=== PATIENT | female | born 1980 | race African-American/Black ===

== ENCOUNTER 2018-06-05 12:31 | Inpatient (IN) | payer MEDICAID ==
[~2018-06-05] VITALS: Ht 167.6 cm; Wt 96.0 kg
[2018-06-05] VITALS (9 sets, daily range): BP systolic 136–154; BP diastolic 80–88
[2018-06-05 13:52] LABS: Mean Corpuscular Volume 45.6 fL (80.0-100.0)
[2018-06-05 13:53] LABS: Mean Corpuscular Hemoglobin 11.6 pg (28.0-32.0); Mean Corpuscular Hgb Conc. 25.4 g/dL (32.0-36.0); Platelet Count (auto) 238 10^3/uL (140-450); Red Blood Cells 5.47 10^6/uL (4.0-5.20); White Blood Cell 7.1 10^3/uL (4.4-10.8)
[2018-06-05 13:54] LABS: Red Cell Distribution Width 22.7 % (11.8-14.3)
[2018-06-05 13:55] LABS: INR 0.98 (0.9-1.15); Partial Thromboplastin Time 22.9 sec (23.78-33.04); Prothrombin Time 10.5 sec (9.27-12.13)
[2018-06-05 13:58] LABS: Hemoglobin 6.3 g/dL (12.2-16.2)
[2018-06-05] MEDS ORDERED: ENOXAPARIN SOD 100 MG/1 ML SYRINGE SC ONE ×2 (14:00→14:45)
[2018-06-05 14:01] LABS: Albumin 3.4 g/dL (3.4-5.0); BUN/Creatinine Ratio 19.8; Calcium 8.1 mg/dL (8.5-10.1); Potassium 4.1 mmol/L (3.5-5.1)
[2018-06-05 14:11] LABS: Bilirubin, Total 0.5 mg/dL (0.2-1.0); Total Protein 7.3 g/dL (6.4-8.2)
[2018-06-05] MEDS ORDERED: ONDANSETRON HCL 4 MG/2 ML VIAL IV ONE (14:15)
[2018-06-05] MEDS ORDERED: MORPHINE SULFATE 4 MG/ML SYR/VIAL IV ONE (14:15)
[2018-06-05] MEDS ORDERED: NITROGLYCERIN 0.4 MG SL TAB SL PRN (14:45)
[2018-06-05] MEDS ORDERED: HYDROcodone-ACET 5/325MG TAB PO PRN (14:45)
[2018-06-05] MEDS ORDERED: MORPHINE SULFATE 4 MG/ML SYR/VIAL IV PRN (14:45)
[2018-06-05 15:47] LABS: % Iron Saturation 2.4 % (15-50)
[2018-06-05] MEDS: MORPHINE SULFATE 4 MG/ML SYR/VIAL IV PRN (18:58)
[2018-06-05] MEDS: ENOXAPARIN SOD 100 MG/1 ML SYRINGE SC SCH (21:43)
[2018-06-05] MEDS: FAMOTIDINE 20 MG TAB PO SCH (21:43)
[2018-06-05 23:41] LABS: Urine Bacteria NONE SEEN /hpf (None Seen); Urine Blood Negative /uL (Negative); Urine Mucus FEW (None Seen); Urine Specific Gravity 1.018 (1.001-1.035); Urine WBC <1 /hpf (0 - 5)
[2018-06-06] VITALS (13 sets, daily range): BP systolic 106–166; BP diastolic 60–93
[2018-06-06 06:05] LABS: Hemoglobin 7.2 g/dL (12.2-16.2)
[2018-06-06 06:15] LABS: Hematocrit 26.4 % (36.0-46.0); Mean Corpuscular Hemoglobin 13.9 pg (28.0-32.0); Mean Corpuscular Hgb Conc. 27.4 g/dL (32.0-36.0); Mean Corpuscular Volume 50.6 fL (80.0-100.0); Red Blood Cells 5.22 10^6/uL (4.0-5.20); White Blood Cell 6.7 10^3/uL (4.4-10.8)
[2018-06-06 06:22] LABS: Platelet Count (auto) 207 10^3/uL (140-450); Red Cell Distribution Width 23.2 % (11.8-14.3)
[2018-06-06 06:24] LABS: Band Neutrophils % (manual) 0; Basophils % (manual) 0 (0.0-2.0); Blast Cells 0; Metamyelocytes % 0; Myelocytes % 0; Promyelocytes % 0; Reactive Lymphocytes 0
[2018-06-06 06:27] LABS: Potassium 4.1 mmol/L (3.5-5.1)
[2018-06-06 06:32] LABS: BUN/Creatinine Ratio 19.3; Calcium 7.8 mg/dL (8.5-10.1)
[2018-06-06 07:53] LABS: Eosinophils % (manual) 1 (0-7); Lymphocytes % (manual) 52 (10.0-50.0); Monocytes % (manual) 10 (0-12)
[2018-06-06] MEDS: ENOXAPARIN SOD 100 MG/1 ML SYRINGE SC SCH ×2 (10:01→21:28)
[2018-06-06] MEDS: FAMOTIDINE 20 MG TAB PO SCH ×2 (10:01→21:27)
[2018-06-06] MEDS ORDERED: SODIUM FERR GLUC 62.5MG/5ML 125 MG in SODIUM CHL 0.9% 100 ML IV ONE (11:30)
[2018-06-06 11:47] LABS: Hematocrit 28.6 % (36.0-46.0); Hemoglobin 8.1 g/dL (12.2-16.2)
[2018-06-06] MEDS: MORPHINE SULFATE 4 MG/ML SYR/VIAL IV PRN ×3 (13:26→21:28)
[2018-06-06] MEDS: APIXABAN 5 MG TAB PO SCH (21:27)
[2018-06-06] MEDS: ONDANSETRON HCL 4 MG/2 ML VIAL IV PRN (21:28)
[2018-06-07 05:00] VITALS: BP 112/58
[2018-06-07 05:21] LABS: Hemoglobin 7.7 g/dL (12.2-16.2); White Blood Cell 7.6 10^3/uL (4.4-10.8)
[2018-06-07 05:24] LABS: Hematocrit 28.3 % (36.0-46.0); Mean Corpuscular Hemoglobin 14.5 pg (28.0-32.0); Mean Corpuscular Hgb Conc. 27.3 g/dL (32.0-36.0); Platelet Count (auto) 214 10^3/uL (140-450); Red Blood Cells 5.35 10^6/uL (4.0-5.20)
[2018-06-07 05:32] LABS: Red Cell Distribution Width 22.9 % (11.8-14.3)
[2018-06-07 05:33] LABS: Band Neutrophils % (manual) 0; Basophils % (manual) 0 (0.0-2.0); Blast Cells 0; Metamyelocytes % 0; Myelocytes % 0; Promyelocytes % 0
[2018-06-07 06:44] LABS: Lymphocytes % (manual) 52 (10.0-50.0)
[2018-06-07 06:45] LABS: Eosinophils % (manual) 5 (0-7); Monocytes % (manual) 9 (0-12); Reactive Lymphocytes 3
[2018-06-07 08:32] VITALS: BP 121/78
[2018-06-07] MEDS: ENOXAPARIN SOD 100 MG/1 ML SYRINGE SC SCH ×2 (10:59→21:25)
[2018-06-07] MEDS: APIXABAN 5 MG TAB PO SCH (11:00)
[2018-06-07] MEDS: FAMOTIDINE 20 MG TAB PO SCH ×2 (11:00→21:25)
[2018-06-07 13:00] VITALS: BP 135/80
[2018-06-07] MEDS: SODIUM FERR GLUC 62.5MG/5ML 125 MG in SODIUM CHL 0.9% 100 ML IV SCH (14:54)
[2018-06-07 16:46] VITALS: BP 128/80
[2018-06-07] MEDS: MORPHINE SULFATE 4 MG/ML SYR/VIAL IV PRN (20:19)
[2018-06-07] MEDS: ONDANSETRON HCL 4 MG/2 ML VIAL IV PRN (20:19)
[2018-06-07 22:00] VITALS: BP 149/90
[2018-06-08 05:00] VITALS: BP 108/58
[2018-06-08 05:53] LABS: Hemoglobin 8.3 g/dL (12.2-16.2)
[2018-06-08 05:57] LABS: Platelet Count (auto) 214 10^3/uL (140-450); Red Blood Cells 5.62 10^6/uL (4.0-5.20); White Blood Cell 6.2 10^3/uL (4.4-10.8)
[2018-06-08 06:01] LABS: Mean Corpuscular Hemoglobin 14.9 pg (28.0-32.0); Mean Corpuscular Hgb Conc. 27.8 g/dL (32.0-36.0); Mean Corpuscular Volume 53.6 fL (80.0-100.0); Red Cell Distribution Width 23.4 % (11.8-14.3)
[2018-06-08 06:02] LABS: Band Neutrophils % (manual) 0; Basophils % (manual) 0 (0.0-2.0); Blast Cells 0; Eosinophils % (manual) 0 (0-7); Metamyelocytes % 0; Myelocytes % 0; Promyelocytes % 0
[2018-06-08 06:59] LABS: Lymphocytes % (manual) 44 (10.0-50.0); Monocytes % (manual) 7 (0-12); Reactive Lymphocytes 4
[2018-06-08 09:00] VITALS: BP 144/80
[2018-06-08] MEDS: FAMOTIDINE 20 MG TAB PO SCH ×2 (10:00→21:25)
[2018-06-08] MEDS: ENOXAPARIN SOD 100 MG/1 ML SYRINGE SC SCH (10:00)
[2018-06-08] MEDS ORDERED: LIDOCAINE 2%HCL (LOCAL ANESTH.) INJ 10ml MDV ONE (10:22)
[2018-06-08] MEDS ORDERED: IOHEXOL 350 MG/ML 100ML IJ ONE (10:22)
[2018-06-08] MEDS ORDERED: fentaNYL CITRATE 100 MCG/2 ML VL ONE (10:34)
[2018-06-08] MEDS ORDERED: MIDAZOLAM HCL 1MG/1ML-2 ML VIAL ONE (10:35)
[2018-06-08] MEDS ORDERED: MORPHINE SULFATE 4 MG/ML SYR/VIAL IV PRN (12:30)
[2018-06-08 13:00] VITALS: BP 141/82
[2018-06-08] MEDS: SODIUM FERR GLUC 62.5MG/5ML 125 MG in SODIUM CHL 0.9% 100 ML IV SCH (14:18)
[2018-06-08] MEDS: MORPHINE SULFATE 4 MG/ML SYR/VIAL IV PRN ×2 (14:19→21:25)
[2018-06-08] MEDS: HYDROcodone-ACET 5/325MG TAB PO PRN (15:11)
[2018-06-08 16:17] VITALS: BP 155/92
[2018-06-08] MEDS: ONDANSETRON HCL 4 MG/2 ML VIAL IV PRN (21:25)
[2018-06-08 22:00] VITALS: BP 124/71
[2018-06-09 05:00] VITALS: BP 135/74
[2018-06-09 05:26] LABS: Hematocrit 30.8 % (36.0-46.0); Hemoglobin 8.7 g/dL (12.2-16.2); Mean Corpuscular Hemoglobin 15.3 pg (28.0-32.0); Mean Corpuscular Hgb Conc. 28.3 g/dL (32.0-36.0); Mean Corpuscular Volume 53.9 fL (80.0-100.0); Platelet Count (auto) 231 10^3/uL (140-450); Red Blood Cells 5.71 10^6/uL (4.0-5.20)
[2018-06-09 05:32] LABS: Red Cell Distribution Width 22.4 % (11.8-14.3)
[2018-06-09 05:33] LABS: Basophils % (manual) 0 (0.0-2.0); Blast Cells 0; Metamyelocytes % 0; Myelocytes % 0; Promyelocytes % 0
[2018-06-09 06:53] LABS: Band Neutrophils % (manual) 1; Eosinophils % (manual) 2 (0-7); Lymphocytes % (manual) 41 (10.0-50.0); Monocytes % (manual) 12 (0-12); Reactive Lymphocytes 2
[2018-06-09 09:00] VITALS: BP 132/80
[2018-06-09] MEDS: HYDROcodone-ACET 5/325MG TAB PO PRN (09:02)
[2018-06-09] MEDS: FAMOTIDINE 20 MG TAB PO SCH (10:05)
[2018-06-09] MEDS: SODIUM FERR GLUC 62.5MG/5ML 125 MG in SODIUM CHL 0.9% 100 ML IV SCH (12:00)
[2018-06-09 13:00] VITALS: BP 141/80
[2018-06-09] MEDS ORDERED: HYDROcodone-ACET 5/325MG TAB PO ONE (13:45)
[2018-06-13] MEDS ORDERED: APIXABAN 5 MG TAB PO SCH (22:00)
== END 2018-06-09 14:45 | disposition home or self-care (01) | DRG 197 ==
LOC: ER 12:31 → TELE 12:32 → TELE-WESTW 17:36 → WEST WING 06-08 19:58
PROVIDERS: ADMIT Internal Medicine; ATTEND Internal Medicine
PROC: 30233N1 Transfusion of Nonautologous Red Blood Cells into Peripheral Vein, Percutaneous Approach (ICD-10-PCS; 2018-06-05)
PROC: 06H03DZ Insertion of Intraluminal Device into Inferior Vena Cava, Percutaneous Approach (ICD-10-PCS; principal; 2018-06-08)
DX: I82.431 Acute embolism and thrombosis of right popliteal vein (principal); D25.9 Leiomyoma of uterus, unspecified; E66.9 Obesity, unspecified; F41.9 Anxiety disorder, unspecified; Z82.49 Family history of ischemic heart disease and other diseases of the circulatory system; Z83.3 Family history of diabetes mellitus; Z86.711 Personal history of pulmonary embolism; Z68.34 Body mass index [BMI] 34.0-34.9, adult; Z88.0 Allergy status to penicillin; D50.9 Iron deficiency anemia, unspecified
CPT/HCPCS: 36415; 37191; 71045; 76856; 80048; 80053; 81001; 82270; 83540; 83550; 84443; 84702; 85007; 85014; 85018; 85025; 85027; 85610; 85730; 86850; 86870; 86900; 86901; 86922; 93971; 96365; 96372; 96375; 99152; A6257; J2001; J2250; J2405

== ENCOUNTER 2018-08-09 14:25 | Emergency (ER) | payer MEDICAID ==
[~2018-08-09] VITALS: Ht 167.6 cm; Wt 98.0 kg
[2018-08-09 15:31] LABS: Albumin 3.6 g/dL (3.4-5.0); BUN/Creatinine Ratio 16.3; Calcium 8.5 mg/dL (8.5-10.1)
[2018-08-09 15:33] LABS: Bilirubin, Total 0.4 mg/dL (0.2-1.0); Total Protein 7.3 g/dL (6.4-8.2)
[2018-08-09 15:36] LABS: Basophils # (auto) 0 uL; Basophils % (auto) 0.6 % (0.0-2.0); Eosinophils # (auto) 0.1 uL; Eosinophils % (auto) 0.8 % (0.0-7.0); Hematocrit 29.6 % (36.0-46.0); Hemoglobin 8.5 g/dL (12.2-16.2); Mean Corpuscular Hemoglobin 16.4 pg (28.0-32.0); Mean Corpuscular Hgb Conc. 28.5 g/dL (32.0-36.0); Mean Corpuscular Volume 57.5 fL (80.0-100.0); Monocytes # (auto) 0.6 uL; Monocytes % (auto) 8.4 % (0.0-12.0); Neutrophils # (auto) 2.7 uL; Neutrophils % (auto) 36.2 % (37.0-80.0); Nucleated Red Blood Cells % 0.1 %; Platelet Count (auto) 264 10^3/uL (140-450); Red Blood Cells 5.15 10^6/uL (4.0-5.20); White Blood Cell 7.4 10^3/uL (4.4-10.8)
[2018-08-09 15:37] LABS: Red Cell Distribution Width 31.4 % (11.8-14.3)
[2018-08-09 16:03] LABS: Urine Bacteria FEW /hpf (None Seen); Urine Blood Negative /uL (Negative); Urine Mucus FEW (None Seen); Urine Specific Gravity 1.026 (1.001-1.035); Urine WBC 42 /hpf (0 - 5)
[2018-08-09 17:03] VITALS: BP 146/99
== END 2018-08-09 17:51 | disposition home or self-care (01) ==
LOC: ER 14:25
DX: D64.9 Anemia, unspecified (principal); N39.0 Urinary tract infection, site not specified; F41.9 Anxiety disorder, unspecified; Z88.0 Allergy status to penicillin
CPT/HCPCS: 36415; 80053; 81001; 85025; 86850; 86900; 86901

== ENCOUNTER 2025-01-11 13:37 | Inpatient (IN) | payer MEDICAID ==
[2025-01-11] VITALS (11 sets, daily range): BP systolic 118–150; BP diastolic 74–86; PULSE 71–83; RESP 16–22; TEMP 97.8–98.6; O2SAT 99
[~2025-01-11] VITALS: Ht 167.6 cm; Wt 88.3 kg
--- NOTE | 2025-01-11 14:34 | ED.PDOC ---
History of Present Illness HPI Comments 44 year old female presents to the ED with a prior Hx of Anemia associated to the c/c of Generalized Weakness. Pt states that she has been feeling incredibly tried, with a tight HENDERSON for the past few months with no alleviating factors at this time. Pt states that she feels very Anemic, and has been experiencing heavy periods. Pt Denies fever, chills, coughing, N/V/D, SOB, Chest pain, ABD Pain or other associated symptoms, modifiers, or recent injuries or sick contact that this time. Chief Complaint: General Weakness Time Seen by MD: 14:29 Primary Care Provider: vicente Reviewed Notes: Nurses Notes, Medications, Allergies Allergies: Coded Allergies: Penicillins (Verified Allergy, Unknown, 08/13/15) Home Meds No Active Prescriptions or Reported Meds Information Source: Patient Mode of Arrival: Ambulatory Severity: Moderate Timing: Months Duration: Other (Months) Prehospital treatment: None Past Medical History PAST MEDICAL HISTORY: Anemia, Anxiety Surgical History: Denies all surgeries [employer] History: Uterine Fibroids Family History Family History: Unknown Social History Smoker: Non-Smoker Alcohol: Occasionally Drugs: Denies Drug Use Lives In: Home Constitutional: reports: fatigue, weakness; denies: chills, diaphoresis, fever, malaise, sweats, others EENTM: denies: blurred vision, double vision, ear bleeding, ear discharge, ear drainage, ear pain, ear ringing, eye pain, eye redness, hearing loss, mouth pain, mouth swelling, nasal discharge, nose bleeding, nose congestion, nose pain, photophobia, tearing, throat pain, throat swelling, voice changes, others Respiratory: denies: cough, hemoptysis, orthopnea, SOB at rest, shortness of breath, SOB with excertion, stridor, wheezing, others Cardiovascular: denies: chest pain, dizzy spells, diaphoresis, Dyspnea on exertion, edema, irregular heart beat, left arm pain, lightheadedness, palpitations, PND, syncope, others Gastrointestinal: denies: abdomen distended, abdominal pain, blood streaked bowels, constipated, diarrhea, dysphagia, difficulty swallowing, hematemesis, melena, nausea, poor appetite, poor fluid intake, rectal bleeding, rectal pain, vomiting, others Genitourinary: denies: abnormal vagina bleeding, burning, dyspareunia, dysuria, flank pain, frequency, hematuria, incontinence, pain, , vagina discharge, urgency, others Neurological: reports: headache; denies: dizziness, fainting, left sided numbness, left sided weakness, numbness, paresthesia, pre-existing deficit, right sided numbness, right sided weakness, seizure, speech problems, tingling, tremors, weakness, others Musculoskeletal: denies: back pain, gout, joint pain, joint swelling, muscle pain, muscle stiffness, neck pain, others Integumetry: denies: bruises, change in color, change in hair/nails, dryness, laceration, lesions, lumps, rash, wounds, others Allergic/Immunocompromised: denies: Difficulty Healing, Frequent Infections, Hives, Itching, others Hematologic/Lymphatic: denies: anemia, blood clots, easy bleeding, easy bruising, swollen glands, others Endocrine: denies: excessive hunger, excessive sweating, excessive thirst, excessive urination, flushing, intolerance to cold, intolerance to heat, unexplained weight gain, unexplained weight loss, others Psychiatric: denies: anxiety, bipolar disorder, depression, hopeless, panic disorder, schizophrenia, sleepless, suicidal, others All Other Systems: Reviewed and Negative Physical Exam General Appearance: Moderate Distress HEENT: Normal ENT Inspection, TMs Normal Neck: Full Range of Motion, Normal, Normal Inspection Respiratory: Lungs Clear, No Respiratory Distress, Normal Breath Sounds Cardiovascular: No Edema, Normal Peripheral Pulses, Regular Rate/Rhythm Breast Exam: Deferred Gastrointestinal: Non Tender, Soft Genitalia: Deferred Pelvic: Deferred Rectal: Deferred Extremities: No calf tenderness, Non-tender, No pedal edema Musculoskeletal : Apperance: Normal Neurologic: Alert, Normal Affect, Normal Mood Cerebellar Function: Normal Reflexes: Normal Skin: Dry, Normal Color, Warm Lymphatic: No Adenopathy Was a procedure done? Was a procedure done?: No Differential Dx Considerations may include: ACS, CVA, viral syndrome, symptomatic anemia, infectious etiology X-Ray, Labs, Meds, VS Vital Signs Date Time Temp Pulse Resp B/P (MAP) Pulse Ox O2 Delivery O2 Flow Rate FiO2 01/11/25 14:30 98.3 82 16 129/88 (102) 96 98.3 Lab Test 01/11/25 14:41 Range/Units White Blood Count 4.5 4.4-10.8 10^3/uL Red Blood Count 5.34 H 4.0-5.20 10^6/uL Hemoglobin 5.8 *L 12.2-16.2 g/dL Hematocrit 23.5 L 36.0-46.0 % Mean Corpuscular Volume 43.9 L 80.0-100.0 fL Mean Corpuscular Hemoglobin 10.9 L 28.0-32.0 pg Mean Corpuscular Hemoglobin Concent 24.9 L 32.0-36.0 g/dL Red Cell Distribution Width 24.0 H 11.8-14.3 % Platelet Count 330 140-450 10^3/uL Mean Platelet Volume 8.3 6.9-10.8 fL Neutrophils (%) (Auto) 37.0-80.0 % Lymphocytes (%) (Auto) 10.0-50.0 % Monocytes (%) (Auto) 0.0-12.0 % Basophils (%) (Auto) 0.0-2.0 % Neutrophils # (Auto) 1.6-8.6 10 ^3/uL Lymphocytes # (Auto) 0.4-5.4 10 ^3/uL Monocytes # (Auto) 0-1.3 10 ^3/uL Differential Total Cells Counted Pending Neutrophils % (Manual) Pending Band Neutrophils % (Manual) Pending Lymphocytes % (Manual) Pending Monocytes % (Manual) Pending Eosinophils % (Manual) Pending Basophils % (Manual) Pending Metamyelocytes % (manual) Pending Myelocytes % (Manual) Pending Promyelocytes % (Manual) Pending Blast Cells % (Manual) Pending Reactive Lymphocytes Pending Platelet Estimate Pending Sodium Level 141 136-145 mmol/L Potassium Level 3.9 3.5-5.1 mmol/L Chloride Level 107 98-107 mmol/L Carbon Dioxide Level 25 20-31 mmol/L Anion Gap 9 5-15 Blood Urea Nitrogen 13 9-23 mg/dL Creatinine 0.77 0.550-1.02 mg/dL Glomerular Filtration Rate Calc 97 >90 mL/min BUN/Creatinine Ratio 16.9 10.0-20.0 Serum Glucose 95 74-106 mg/dL Calcium Level 9.2 8.7-10.4 mg/dL Time of 1ST Reevaluation: 15:00 Reevaluation 1ST: Unchanged Patient Education/Counseling: Diagnosis, Treatment Family Education/Counseling: No Family Present Departure 1 Departure Time of Disposition: 15:50 (Patient presents with a worsening weakness found to have a critically low hemoglobin. We will admit patient for further workup and expert consultation.) Impression: Primary Impression: Symptomatic anemia Additional Impression: Generalized weakness Disposition: 09 ADMITTED INPATIENT Admit to: Med Surg Condition: Serious e-Prescriptions No Active Prescriptions or Reported Meds Critical Care Note Critical Care Time?: Yes Critical care comment: Critically low hemoglobin Authorized and Performed by: Blaine Goldstein MD Total critical care time: Approximately 37 minutes Due to a high probability of clinically significant, life threatening deterioration, the patient required my highest level of preparedness to intervene emergently and I personally spent this critical care time directly and personally managing the patient. This critical care time included obtaining a history; examining the patient; pulse oximetry; ordering and review of studies; arranging urgent treatment with development of a management plan; evaluation of patient's response to treatment; frequent reassessment; and, discussions with other providers. This critical care time was performed to assess and manage the high probability of imminent, life-threatening deterioration that could result in multi-organ failure. It was exclusive of separately billable procedures and treating other patients and teaching time. Please see my other sections and the rest of the note for further information on patient assessment and treatment. Stability Stability form required: No I personally scribed for BLAINE GOLDSTEIN MD ([email or web address]) on 01/11/25 at 14:34. Electronically submitted by Jose Avlaos ([email or web address]). BLAINE GOLDSTEIN MD January 11, 2025 14:34
[2025-01-11 15:06] LABS: Mean Corpuscular Hemoglobin 10.9 pg (28.0-32.0); White Blood Cell 4.5 10^3/uL (4.4-10.8)
[2025-01-11 15:08] LABS: Hematocrit 23.5 % (36.0-46.0); Mean Corpuscular Hgb Conc. 24.9 g/dL (32.0-36.0); Mean Corpuscular Volume 43.9 fL (80.0-100.0); Platelet Count (auto) 330 10^3/uL (140-450); Red Blood Cells 5.34 10^6/uL (4.0-5.20)
[2025-01-11 15:15] LABS: Chloride 107 mmol/L (98-107); Potassium 3.9 mmol/L (3.5-5.1); Sodium 141 mmol/L (136-145)
[2025-01-11 15:16] LABS: Anion Gap 9 (5-15); Calcium 9.2 mg/dL (8.7-10.4); Carbon Dioxide 25 mmol/L (20-31)
[2025-01-11 15:21] LABS: BUN/Creatinine Ratio 16.9 (10.0-20.0); Blood Urea Nitrogen 13 mg/dL (9-23); Glucose 95 mg/dL (74-106)
[2025-01-11 15:33] LABS: Band Neutrophils % (manual) 0; Basophils % (manual) 0 (0.0-2.0); Blast Cells 0; Hemoglobin 5.8 g/dL (12.2-16.2); Metamyelocytes % 0; Promyelocytes % 0
[2025-01-11 17:15] LABS: Eosinophils % (manual) 1 (0-7); Lymphocytes % (manual) 28 (10.0-50.0); Monocytes % (manual) 8 (0-12); Myelocytes % 1; Reactive Lymphocytes 2
[2025-01-11] MEDS ORDERED: DOCUSATE SOD 100 MG CAP PO PRN (17:15)
[2025-01-11] MEDS ORDERED: HYDROcodone-ACET 5/325MG TAB PO PRN (17:15)
[2025-01-11] MEDS ORDERED: ONDANSETRON HCL 4 MG/2 ML VIAL IV PRN ×2 (17:15→17:30)
[2025-01-11] MEDS ORDERED: ACETAMINOPHEN 325 MG TAB PO PRN (17:15)
--- NOTE | 2025-01-11 17:16 | DVHHP2 ---
History of Present Illness Reason for Visit: Generalized weakness History of Present Illness Italo Leigh is a 44-year-old female with past medical history of asthma, anxiety, DVT with IVC filter, anemia, uterine fibroids, and adenomyosis, who came in for generalized weakness. Patient states her weakness has been increasin g over the last few weeks. She has a history of anemia and has required blood transfusions in the past. Her last transfusion was in 2023. She has a [employer]OLOG[employer]DEL[employer] doctor that [place]. She states she did a procedure on her over a year ago that did help. She states she would like to go back to her once she is discharged to discuss her options, she does not want a hysterectomy. Patient states she was taking iron pills, but stopped due to side effects. She states she prefers the liquid or iron infusions. Patient was on anticoagulations for the H/O DVTs in left leg. She states those were stopped a while ago. Currently she is taking no home medications. Heme/Onc: Anemia NOS Psych: Anxiety Past Surgical History: Other (IVC filter, [employer] procedure for fibroids and adenomysis) Smoke: No ALCOHOL: none Lives: with Family Domestic Violence: Neg Review of Systems Constitutional: Yes: Weakness, Malaise; No: Fever, Chills, Sweats, Other Eyes: No: Pain, Vision change, Conjunctivae inflammation, Eyelid inflammation, Other, Redness ENT: No: Ear pain, Ear discharge, Nose pain, Nose discharge, Nose congestion, Mouth pain, Mouth swelling, Throat pain, Throat swelling, Other Respiratory: No: Cough, Dry, Shortness of breath, SOB with excertion, Wheezing, Hemoptysis, Pleuritic Pain, Sputum, Wheezing, Other Cardiovascular: No: Chest Pain, Palpitations, Orthopnea, Paroxysmal Noc. Dyspnea, Edema, Lt Headedness, Other Gastrointestinal: No: Nausea, Vomiting, Abdominal Pain, Diarrhea, Constipation, Melena, Hematochezia, Other Genitourinary: No Dysuria, No Frequency, No Incontinence, No Hematuria, No Retention, No Other Musculoskeletal: No: other, neck pain, shoulder pain, arm pain, back pain, hand pain, leg pain, foot pain Skin: No: Rash, Lesions, Jaundice, Bruising, Other Neurological: No: Weakness, Numbness, Incoordination, Change in speech, Confusion, Seizures, Other Allergies: Coded Allergies: Penicillins (Verified Allergy, Unknown, 08/13/15) Exam Vital Signs Vital Signs Date Time Temp Pulse Resp B/P (MAP) Pulse Ox O2 Delivery O2 Flow Rate FiO2 01/11/25 16:00 Room Air* 0 21 01/11/25 14:30 98.3 82 16 129/88 (102) 96 98.3 General Appearance: Alert, Oriented X3, Cooperative, moderate distress HEENT: Atraumatic, PERRLA, Mucous membr. moist/pink Respiratory: Clear to auscultation, Normal air movement, Other Cardiovascular: Regular rate, Normal S1, Normal S2, No murmurs Abdominal: Normal bowel sounds, Soft, No tenderness Extremities: No clubbing, No cyanosis, No edema, Normal pulses, No tenderness/swelling Skin: No rashes, No breakdown, No significant lesion Neuro: Normal gait, Normal speech, Strength at 5/5 X4 ext Psych/Mental Status: Mental status NL, Mood NL Labs/Xrays Labs Test 01/11/25 14:41 Range/Units White Blood Count 4.5 4.4-10.8 10^3/uL Red Blood Count 5.34 H 4.0-5.20 10^6/uL Hemoglobin 5.8 *L 12.2-16.2 g/dL Hematocrit 23.5 L 36.0-46.0 % Mean Corpuscular Volume 43.9 L 80.0-100.0 fL Mean Corpuscular Hemoglobin 10.9 L 28.0-32.0 pg Mean Corpuscular Hemoglobin Concent 24.9 L 32.0-36.0 g/dL Red Cell Distribution Width 24.0 H 11.8-14.3 % Platelet Count 330 140-450 10^3/uL Mean Platelet Volume 8.3 6.9-10.8 fL Neutrophils (%) (Auto) 37.0-80.0 % Lymphocytes (%) (Auto) 10.0-50.0 % Monocytes (%) (Auto) 0.0-12.0 % Basophils (%) (Auto) 0.0-2.0 % Neutrophils # (Auto) 1.6-8.6 10 ^3/uL Lymphocytes # (Auto) 0.4-5.4 10 ^3/uL Monocytes # (Auto) 0-1.3 10 ^3/uL Sodium Level 141 136-145 mmol/L Potassium Level 3.9 3.5-5.1 mmol/L Chloride Level 107 98-107 mmol/L Carbon Dioxide Level 25 20-31 mmol/L Anion Gap 9 5-15 Blood Urea Nitrogen 13 9-23 mg/dL Creatinine 0.77 0.550-1.02 mg/dL Glomerular Filtration Rate Calc 97 >90 mL/min BUN/Creatinine Ratio 16.9 10.0-20.0 Serum Glucose 95 74-106 mg/dL Calcium Level 9.2 8.7-10.4 mg/dL Assessment/Plan Assessment/Plan Assessment: Symptomatic anemia, Severe anemia, Possible iron deficiency anemia, Uterine fibroids, Plan: Admit to Med-Surg, Transfuse 2 units PRBC, Repeat CBC after transfusion, Iron panel, Consider iron infusion once labs result, Plan discussed with: Patient My Orders Orders - LUKE CANO Procedure Category Date Status Time Admit ADMIT 01/11/25 Transmitted 17:07 Code Status CODE 01/11/25 Transmitted 17:07 Hydrocodone-Acet PHA 01/11/25 Transmitted 5/325mg Tab (Crum 17:15 Comprehensive LAB 01/12/25 Verified Metabolic Panel 04:00 Condition: Critical MICHAEL 01/11/25 Transmitted 17:07 Acetaminophen Tablet PHA 01/11/25 Transmitted (Tylenol Tablet) 17:15 Ondansetron Hcl PHA 01/11/25 Verified (Zofran) 17:15 Docusate Sodium PHA 01/11/25 Verified Capsule (Colace 17:15 Complete Blood Count LAB 01/12/25 Verified 04:00 Date of Service: January 11, 2025 Billing Provider: LUKE CANO Common Visit Codes: [id number] INP/OBS CARE (HIGH) LUKE CANO January 11, 2025 17:16
[2025-01-11 17:17] LABS: Anisocytosis Marked
[2025-01-11 17:18] LABS: Urine Bacteria None Seen /hpf (None Seen)
[2025-01-11 17:18] LABS: Hypochromia Marked; Ovalocytes FEW
[2025-01-11 17:19] LABS: Large Platelets FEW; Platelet Estimate Adequate; Target Cell FEW
[2025-01-11 18:10] LABS: Urine Blood Negative /uL (Negative); Urine Clarity Clear (Clear); Urine Color Light-Yellow (Yellow); Urine Mucus FEW (None Seen); Urine Protein, UAD Negative (Negative); Urine Specific Gravity 1.023 (1.001-1.035); Urine Squamous Epithelial Cell FEW /hpf (<5); Urine Urobilinogen Normal (Negative); Urine WBC < 1 /HPF (0-5)
[2025-01-11 18:37] LABS: % Iron Saturation 3.8 % (15-50)
[2025-01-11] MEDS: ACETAMINOPHEN 325 MG TAB PO PRN (21:26)
[2025-01-12 05:00] VITALS: BP 125/57; PULSE 69; RESP 17; TEMP 97.5; O2SAT 96
[2025-01-12 06:26] LABS: Hematocrit 27.3 % (36.0-46.0); Hemoglobin 7.4 g/dL (12.2-16.2); Mean Corpuscular Hemoglobin 14.2 pg (28.0-32.0); Mean Corpuscular Hgb Conc. 27.3 g/dL (32.0-36.0); Mean Corpuscular Volume 51.9 fL (80.0-100.0); Platelet Count (auto) 277 10^3/uL (140-450); Red Blood Cells 5.26 10^6/uL (4.0-5.20); White Blood Cell 5.2 10^3/uL (4.4-10.8)
[2025-01-12 06:39] LABS: Alanine Aminotransferase < 9 U/L (7-40); Albumin 3.7 g/dL (3.2-4.8); Alkaline Phosphatase 46 U/L (46-116); Anion Gap 8 (5-15); Aspartate Aminotransferase 9 U/L (13-40); Bilirubin, Total 1.2 mg/dL (0.2-1.0); Blood Urea Nitrogen 12 mg/dL (9-23); Calcium 9.1 mg/dL (8.7-10.4); Carbon Dioxide 25 mmol/L (20-31); Chloride 107 mmol/L (98-107); Glucose 97 mg/dL (74-106); Potassium 3.9 mmol/L (3.5-5.1); Sodium 140 mmol/L (136-145); Total Protein 5.9 g/dL (5.7-8.2)
[2025-01-12 06:43] LABS: Basophils % (manual) 0 (0.0-2.0); Blast Cells 0; Eosinophils % (manual) 0 (0-7); Metamyelocytes % 0; Myelocytes % 0; Promyelocytes % 0; Reactive Lymphocytes 0
[2025-01-12 07:59] LABS: Anisocytosis Slight; Band Neutrophils % (manual) 2; Hypochromia Moderate; Lymphocytes % (manual) 49 (10.0-50.0); Monocytes % (manual) 5 (0-12); Ovalocytes FEW
[2025-01-12 08:01] LABS: Platelet Estimate Adequate
[2025-01-12 09:00] VITALS: BP 115/65; PULSE 63; RESP 18; TEMP 97.9; O2SAT 99
[2025-01-12] MEDS: IRON SUCROSE COMPLEX 110 ML IV SCH (11:20)
[2025-01-12 13:30] VITALS: BP 139/93; PULSE 61; RESP 18; TEMP 98.2; O2SAT 97
[2025-01-12 16:30] VITALS: BP 144/92; PULSE 69; RESP 17; TEMP 98; O2SAT 99
[2025-01-12 20:00] VITALS: RESP 16; O2SAT 98
--- NOTE | 2025-01-12 20:16 | DVHPN2 ---
Subjective 44-year-old female with a history of chronic iron deficiency anemia, menorrhagia, comes with a chief complaint of weakness and her hemoglobin was 5.8 and therefore she was given 2 units of packed RBCs which elevated her hemoglobin today to 7.4 her MCV was 44 She has a history of DVT and IVC filter and asthma and anemia She does not take any home medications Changes from previous H/P or p: Changes Eyes: No Pain, No Vision change, No Conjunctivae inflammation, No Eyelid inflammation, No Other, No Redness ENT: No Ear pain, No Ear discharge, No Nose pain, No Nose discharge, No Nose congestion, No Mouth pain, No Mouth swelling, No Throat pain, No Throat swelling, No Other Cardiovascular: No Chest Pain, No Palpitations, No Orthopnea, No Paroxysmal Noc. Dyspnea, No Edema, No Lt Headedness, No Other Respiratory: No Cough, No Dry, No Shortness of breath, No SOB with excertion, No Wheezing, No Hemoptysis, No Pleuritic Pain, No Sputum, No Other Gastrointestinal: No Nausea, No Vomiting, No Abdominal Pain, No Diarrhea, No Constipation, No Melena, No Hematochezia, No Other Genitourinary: No Dysuria, No Frequency, No Incontinence, No Hematuria, No Retention, No Other Musculoskeletal: No other, No neck pain, No shoulder pain, No arm pain, No back pain, No hand pain, No leg pain, No foot pain Skin: No Rash, No Lesions, No Jaundice, No Bruising, No Other Objective Vitals Vital Signs Date Time Temp Pulse Resp B/P (MAP) Pulse Ox O2 Delivery O2 Flow Rate FiO2 01/12/25 16:30 98.0 69 17 144/92 (109) 99 98.0 01/12/25 08:08 Room Air* 0 21 Intake/Output Intake and Output 01/12/25 07:00 Intake Total 1780 ml Balance 1780 ml Intake Oral 880 ml Blood Product 600 ml Other 300 ml # Voids 1 General Appearance: Alert, Oriented X3, Cooperative, No acute distress Lungs: Clear to auscultation, Normal air movement Cardiovascular: Regular rate, Normal S1 Abdomen: Normal bowel sounds, Soft, No tenderness Extremities: No edema Medications Current Medications Medications Dose Ordered Sig/Ani Route Start Time Stop Time Status Last Admin Dose Admin Ondansetron HCl 4 mg Q4HP PRN IV 01/11/25 17:30 Acetaminophen/ Hydrocodone Bitart 1 tab Q4HP PRN PO 01/11/25 17:30 Docusate Sodium 100 mg BIDPRN PRN PO 01/11/25 17:30 Acetaminophen 650 mg Q6HP PRN PO 01/11/25 17:30 01/12/25 12:29 650 MG Iron Sucrose 110 ml @ 110 mls/hr DAILY@1200 IV 01/12/25 12:00 01/14/25 12:59 01/12/25 11:20 110 MLS/HR Laboratory Results Laboratory Tests 01/12/25 05:54 Chemistry Test 01/12/25 05:54 Albumin 3.7 g/dL (3.2-4.8) Calcium Level 9.1 mg/dL (8.7-10.4) Total Protein 5.9 g/dL (5.7-8.2) LFT Test 01/12/25 05:54 Alanine Aminotransferase (ALT) < 9 U/L (7-40) Alkaline Phosphatase 46 U/L (46-116) Aspartate Amino Transferase (AST) 9 U/L (13-40) L Total Bilirubin 1.2 mg/dL (0.2-1.0) H Urinalysis Test 01/11/25 14:33 Urine Color Light-yellow (Yellow) Urine Clarity Clear (Clear) Urine pH 7.0 (5.0-9.0) Urine Specific [place] 1.023 (1.001-1.035) Urine Protein Negative (Negative) Urine Ketones Negative (Negative) Urine Blood Negative /uL (Negative) Urine Nitrite Negative (Negative) Urine Bilirubin Negative (Negative) Urine Urobilinogen Normal mg/dL (Negative) Urine Leukocyte Esterase Negative /uL (Negative) Urine RBC None seen /hpf (0 - 4) Urine Microscopic WBC < 1 /HPF (0-5) Urine Squamous Epithelial Cells Few /hpf (<5) Urine Bacteria None seen /hpf (None Seen) Urine Mucus Few (None Seen) Urine Glucose Normal mg/dL (Normal) Urine Test Negative (Negative) Assessment/Plan Assessment/Plan Acute anemia due to blood loss 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, iron deficiency type Menorrhagia History of DVT status post IVC filter History of asthma Plan The patient is not willing to take iron pills Give IV iron She received 2 units packed RBCs Monitor hemoglobin and transfuse RBCs as needed Full code Advance directives discussed for 20 minutes Plan discussed with: Patient My Orders Orders - TIFFANI CONTI MD Procedure Category Date Status Time Iron Sucrose Complex PHA 01/12/25 In Process (Venofer) 12:00 Basic Metabolic Panel LAB 01/13/25 Verified 04:00 Complete Blood Count LAB 01/13/25 Verified 04:00 Magnesium LAB 01/13/25 Verified 04:00 Thyroid Stimulating LAB 01/13/25 Verified Hormone 04:00 Date of Service: January 12, 2025 Billing Provider: TIFFANI CONTI MD Common Visit Codes: [id number] INP/OBS CARE(HIGH) Secondary Visit Codes: [id number] CARE PLAN 30 MINUTES TIFFANI CONTI MD January 12, 2025 20:16
[2025-01-12 21:00] VITALS: BP 142/80; PULSE 71; RESP 17; TEMP 98.2; O2SAT 99
[2025-01-13] VITALS (8 sets, daily range): BP systolic 111–133; BP diastolic 54–80; PULSE 57–74; RESP 16–18; TEMP 97.6–98.4; O2SAT 96–98
[2025-01-13] MEDS: HYDROcodone-ACET 5/325MG TAB PO PRN (00:40)
[2025-01-13 07:56] LABS: Anion Gap 8 (5-15); Calcium 9.2 mg/dL (8.7-10.4); Carbon Dioxide 26 mmol/L (20-31); Chloride 107 mmol/L (98-107); Potassium 3.8 mmol/L (3.5-5.1); Sodium 141 mmol/L (136-145)
[2025-01-13 08:02] LABS: BUN/Creatinine Ratio 11.1 (10.0-20.0); Blood Urea Nitrogen 9 mg/dL (9-23); Glucose 92 mg/dL (74-106); Magnesium 1.9 mg/dL (1.6-2.6)
[2025-01-13 08:12] LABS: Hematocrit 28.2 % (36.0-46.0); Hemoglobin 7.6 g/dL (12.2-16.2); Mean Corpuscular Hemoglobin 13.8 pg (28.0-32.0); Mean Corpuscular Hgb Conc. 27.1 g/dL (32.0-36.0); Mean Corpuscular Volume 50.8 fL (80.0-100.0); Platelet Count (auto) 308 10^3/uL (140-450); Red Blood Cells 5.54 10^6/uL (4.0-5.20); Red Cell Distribution Width 36.2 % (11.8-14.3); White Blood Cell 7.1 10^3/uL (4.4-10.8)
[2025-01-13 08:14] LABS: Basophils % (manual) 0 (0.0-2.0); Blast Cells 0; Metamyelocytes % 0; Monocytes % (manual) 0 (0-12); Myelocytes % 0; Promyelocytes % 0; Reactive Lymphocytes 0
[2025-01-13 08:44] LABS: Anisocytosis Slight; Band Neutrophils % (manual) 2; Eosinophils % (manual) 2 (0-7); Hypochromia Moderate; Lymphocytes % (manual) 42 (10.0-50.0)
[2025-01-13 08:45] LABS: Ovalocytes FEW; Target Cell FEW
[2025-01-13 08:46] LABS: Platelet Estimate Adequate
[2025-01-13] MEDS: DOCUSATE SOD 100 MG CAP PO PRN (11:00)
--- NOTE | 2025-01-13 12:06 | DVHPN2 ---
Subjective No new complaints Changes from previous H/P or p: Changes Eyes: No Pain, No Vision change, No Conjunctivae inflammation, No Eyelid inflammation, No Other, No Redness ENT: No Ear pain, No Ear discharge, No Nose pain, No Nose discharge, No Nose congestion, No Mouth pain, No Mouth swelling, No Throat pain, No Throat swelling, No Other Cardiovascular: No Chest Pain, No Palpitations, No Orthopnea, No Paroxysmal Noc. Dyspnea, No Edema, No Lt Headedness, No Other Respiratory: No Cough, No Dry, No Shortness of breath, No SOB with excertion, No Wheezing, No Hemoptysis, No Pleuritic Pain, No Sputum, No Other Gastrointestinal: No Nausea, No Vomiting, No Abdominal Pain, No Diarrhea, No Constipation, No Melena, No Hematochezia, No Other Genitourinary: No Dysuria, No Frequency, No Incontinence, No Hematuria, No Retention, No Other Musculoskeletal: No other, No neck pain, No shoulder pain, No arm pain, No back pain, No hand pain, No leg pain, No foot pain Skin: No Rash, No Lesions, No Jaundice, No Bruising, No Other Objective Vitals Vital Signs Date Time Temp Pulse Resp B/P (MAP) Pulse Ox O2 Delivery O2 Flow Rate FiO2 01/13/25 09:00 98.0 60 17 111/54 (73) 97 98.0 01/13/25 08:08 Room Air* 0 21 Intake/Output Intake and Output 01/13/25 07:00 Intake Total 1350 ml Balance 1350 ml Intake Oral 1240 ml IV Total 110 ml # Voids 6 # Bowel Movements 1 General Appearance: Alert, Oriented X3, Cooperative, No acute distress Lungs: Clear to auscultation, Normal air movement Cardiovascular: Regular rate, Normal S1 Abdomen: Normal bowel sounds, Soft, No tenderness Extremities: No edema Medications Current Medications Medications Dose Ordered Sig/Ani Route Start Time Stop Time Status Last Admin Dose Admin Ondansetron HCl 4 mg Q4HP PRN IV 01/11/25 17:30 Acetaminophen/ Hydrocodone Bitart 1 tab Q4HP PRN PO 01/11/25 17:30 01/13/25 00:40 1 TAB Docusate Sodium 100 mg BIDPRN PRN PO 01/11/25 17:30 01/13/25 11:00 100 MG Acetaminophen 650 mg Q6HP PRN PO 01/11/25 17:30 01/12/25 12:29 650 MG Iron Sucrose 110 ml @ 110 mls/hr DAILY@1200 IV 01/12/25 12:00 01/14/25 12:59 01/13/25 10:50 110 MLS/HR Laboratory Results Laboratory Tests 01/13/25 06:53 Chemistry Test 01/13/25 06:53 Calcium Level 9.2 mg/dL (8.7-10.4) Magnesium Level 1.9 mg/dL (1.6-2.6) HgA1c, TSH Test 01/13/25 06:53 Thyroid Stimulating Hormone (TSH) 1.08 uIU/mL (0.55-4.78) Urinalysis Test 01/11/25 14:33 Urine Color Light-yellow (Yellow) Urine Clarity Clear (Clear) Urine pH 7.0 (5.0-9.0) Urine Specific [place] 1.023 (1.001-1.035) Urine Protein Negative (Negative) Urine Ketones Negative (Negative) Urine Blood Negative /uL (Negative) Urine Nitrite Negative (Negative) Urine Bilirubin Negative (Negative) Urine Urobilinogen Normal mg/dL (Negative) Urine Leukocyte Esterase Negative /uL (Negative) Urine RBC None seen /hpf (0 - 4) Urine Microscopic WBC < 1 /HPF (0-5) Urine Squamous Epithelial Cells Few /hpf (<5) Urine Bacteria None seen /hpf (None Seen) Urine Mucus Few (None Seen) Urine Glucose Normal mg/dL (Normal) Urine Test Negative (Negative) Assessment/Plan Assessment/Plan Acute anemia due to blood loss 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, iron deficiency type Menorrhagia History of DVT status post IVC filter History of asthma Plan The patient is not willing to take iron pills Give IV iron She received 2 units packed RBCs Monitor hemoglobin and transfuse RBCs as needed Full code Advance directives discussed for 20 minutes 01/13/2025: Continue IV iron Hemoglobin is stable No need for blood transfusion today Check the hemoglobin again is tomorrow The patient will need to go outpatient and follow up with the primary care physician regarding her definitive treatment for her menorrhagia including possibly hysterectomy however for now she does not want to have hysterectomy and she is going to follow up with her well tester specialist for other options Plan discussed with: Patient Date of Service: January 13, 2025 Billing Provider: TIFFANI CONTI MD Common Visit Codes: [id number] INP/OBS CARE(HIGH) TIFFANI CONTI MD January 13, 2025 12:06
[2025-01-14 01:00] VITALS: BP 123/57; PULSE 63; RESP 17; TEMP 98.1; O2SAT 96
[2025-01-14 05:00] VITALS: BP 126/79; PULSE 70; RESP 16; TEMP 97.9; O2SAT 96
[2025-01-14 06:35] LABS: Hematocrit 29.6 % (36.0-46.0); Hemoglobin 8.1 g/dL (12.2-16.2); Mean Corpuscular Hemoglobin 14.2 pg (28.0-32.0); Mean Corpuscular Hgb Conc. 27.3 g/dL (32.0-36.0); Mean Corpuscular Volume 52.2 fL (80.0-100.0); Platelet Count (auto) 315 10^3/uL (140-450); Red Blood Cells 5.67 10^6/uL (4.0-5.20); White Blood Cell 7.9 10^3/uL (4.4-10.8)
[2025-01-14 06:36] LABS: Anion Gap 9 (5-15); Calcium 8.9 mg/dL (8.7-10.4); Carbon Dioxide 25 mmol/L (20-31); Chloride 106 mmol/L (98-107); Potassium 3.7 mmol/L (3.5-5.1); Sodium 140 mmol/L (136-145)
[2025-01-14 06:42] LABS: BUN/Creatinine Ratio 10.8 (10.0-20.0); Glucose 86 mg/dL (74-106)
[2025-01-14 06:59] LABS: Blood Urea Nitrogen 9 mg/dL (9-23)
[2025-01-14 07:30] LABS: Red Cell Distribution Width 36.9 % (11.8-14.3)
[2025-01-14 07:32] LABS: Basophils % (manual) 0 (0.0-2.0); Blast Cells 0; Metamyelocytes % 0; Monocytes % (manual) 0 (0-12); Myelocytes % 0; Promyelocytes % 0; Reactive Lymphocytes 0
[2025-01-14 08:00] VITALS: PULSE 65; RESP 16; O2SAT 97
[2025-01-14 08:28] LABS: Anisocytosis Marked; Band Neutrophils % (manual) 3; Eosinophils % (manual) 3 (0-7); Hypochromia Marked; Lymphocytes % (manual) 29 (10.0-50.0); Platelet Estimate Adequate
[2025-01-14 08:29] LABS: Ovalocytes FEW; Target Cell FEW
[2025-01-14 09:00] VITALS: BP 122/76; PULSE 65; RESP 16; TEMP 98.6; O2SAT 97
--- NOTE | 2025-01-14 11:13 | DVHDS2 ---
Discharge Summary Date of Admission January 11, 2025 at 17:07 Date of Discharge: January 14, 2025 Labs/Diagnostic Data: Laboratory Results Test 01/14/25 05:54 01/13/25 06:53 01/12/25 05:54 01/11/25 14:41 White Blood Count 7.9 10^3/uL (4.4-10.8) Red Blood Count 5.67 10^6/uL (4.0-5.20) Hemoglobin 8.1 g/dL (12.2-16.2) Hematocrit 29.6 % (36.0-46.0) Mean Corpuscular Volume 52.2 fL (80.0-100.0) Mean Corpuscular Hemoglobin 14.2 pg (28.0-32.0) Mean Corpuscular Hemoglobin Concent 27.3 g/dL (32.0-36.0) Red Cell Distribution Width 36.9 % (11.8-14.3) Platelet Count 315 10^3/uL (140-450) Mean Platelet Volume 8.2 fL (6.9-10.8) Neutrophils (%) (Auto) % (37.0-80.0) Lymphocytes (%) (Auto) % (10.0-50.0) Monocytes (%) (Auto) % (0.0-12.0) Basophils (%) (Auto) % (0.0-2.0) Neutrophils # (Auto) 10 ^3/uL (1.6-8.6) Lymphocytes # (Auto) 10 ^3/uL (0.4-5.4) Monocytes # (Auto) 10 ^3/uL (0-1.3) Differential Total Cells Counted 100.0 (100) Neutrophils % (Manual) 65 (37.0-80.0) Band Neutrophils % (Manual) 3 Lymphocytes % (Manual) 29 (10.0-50.0) Monocytes % (Manual) 0 (0-12) Eosinophils % (Manual) 3 (0-7) Basophils % (Manual) 0 (0.0-2.0) Metamyelocytes % (manual) 0 Myelocytes % (Manual) 0 Promyelocytes % (Manual) 0 Blast Cells % (Manual) 0 Reactive Lymphocytes 0 Platelet Estimate Adequate Hypochromasia (manual) Marked Anisocytosis (manual) Marked Microcytosis Marked Target Cells Few Ovalocytes Few Sodium Level 140 mmol/L (136-145) Potassium Level 3.7 mmol/L (3.5-5.1) Chloride Level 106 mmol/L (98-107) Carbon Dioxide Level 25 mmol/L (20-31) Anion Gap 9 (5-15) Blood Urea Nitrogen 9 mg/dL (9-23) Creatinine 0.83 mg/dL (0.550-1.02) Glomerular Filtration Rate Calc 89 mL/min (>90) BUN/Creatinine Ratio 10.8 (10.0-20.0) Serum Glucose 86 mg/dL (74-106) Calcium Level 8.9 mg/dL (8.7-10.4) Magnesium Level 1.9 mg/dL (1.6-2.6) Thyroid Stimulating Hormone (TSH) 1.08 uIU/mL (0.55-4.78) Total Bilirubin 1.2 mg/dL (0.2-1.0) Aspartate Amino Transferase (AST) 9 U/L (13-40) Alanine Aminotransferase (ALT) < 9 U/L (7-40) Alkaline Phosphatase 46 U/L (46-116) Total Protein 5.9 g/dL (5.7-8.2) Albumin 3.7 g/dL (3.2-4.8) Large Platelets Few Poikilocytosis (manual) Moderate Tear Drop Cells Schistocytes Few Iron Level 14 ug/dL (50-170) Total Iron Binding Capacity 371 ug/dL (250-425) Percent Iron Saturation 3.8 % (15-50) Test 01/11/25 14:33 Urine Color Light-yellow (Yellow) Urine Clarity Clear (Clear) Urine pH 7.0 (5.0-9.0) Urine Specific [place] 1.023 (1.001-1.035) Urine Protein Negative (Negative) Urine Ketones Negative (Negative) Urine Blood Negative /uL (Negative) Urine Nitrite Negative (Negative) Urine Bilirubin Negative (Negative) Urine Urobilinogen Normal mg/dL (Negative) Urine Leukocyte Esterase Negative /uL (Negative) Urine RBC None seen /hpf (0 - 4) Urine Microscopic WBC < 1 /HPF (0-5) Urine Squamous Epithelial Cells Few /hpf (<5) Urine Bacteria None seen /hpf (None Seen) Urine Mucus Few (None Seen) Urine Glucose Normal mg/dL (Normal) Urine Test Negative (Negative) Other Laboratory Tests 01/14/25 05:54 Brief Hx & Hospital Course: 44-year-old female with a history of chronic iron deficiency anemia, menorrhagia, comes with a chief complaint of weakness and her hemoglobin was 5.8 and therefore she was given 2 units of packed RBCs which elevated her hemoglobin today to 7.4 her MCV was 44 She has a history of DVT and IVC filter and asthma and anemia She does not take any home medications Final diagnoses Acute anemia due to blood loss 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, iron deficiency type Menorrhagia History of DVT status post IVC filter History of asthma She was given 2 units of packed RBCs and then she was started on IV iron She had 2 doses of IV iron and she will get the 3rd dose today Hemoglobin is better now at 8.1 today No need for more blood transfusions The patient is asymptomatic No more bleeding She can be discharged home to follow up as an outpatient with her doctors regarding her management of the heavy menorrhagia that she gets Condition at Discharge: Stable Final Diagnosis/Problems List Acute anemia due to blood loss 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, iron deficiency type Menorrhagia History of DVT status post IVC filter History of asthma Discharge Disposition: Home SNF Discharge Will this Physician continue t: No Discharge Statement: "Patient was advised to return to the ER or call 911 if any headaches, dizziness, shortness of breath, chest pain, abdominal pain, bleeding, fevers, or worsening of medical condition. Patient was counseled about treatment plan, medications, possible side effects, patientverbalized understanding. All questions were answered to the best of my ability. This discharge took greater then 30 minutes in planning, reviewing documentation, counseling the patient, and discussing with other team members." ASSESSMENT ASSESSMENT Assessment Date of Service: January 14, 2025 Billing Provider: TIFFANI CONTI MD Common Visit Codes: 54739-DNH/OBS DISCH DAY >30min TIFFANI CONTI MD January 14, 2025 11:13
[2025-01-14 11:54] VITALS: BP 122/76; PULSE 65; RESP 18; TEMP 37; O2SAT 96
[2025-01-14 13:00] VITALS: BP 149/97; PULSE 67; RESP 18; TEMP 97.9; O2SAT 95
== END 2025-01-14 14:10 | disposition home or self-care (01) | DRG 663 ==
LOC: ER 13:37 → OVERFLOW 17:07 → CENTRAL 18:46
PROVIDERS: ADMIT Nurse Practitioner Family; ATTEND Nurse Practitioner Family
PROC: 30233N1 Transfusion of Nonautologous Red Blood Cells into Peripheral Vein, Percutaneous Approach (ICD-10-PCS; principal; 2025-01-11)
DX: D62 Acute posthemorrhagic anemia (principal); D25.9 Leiomyoma of uterus, unspecified; N92.0 Excessive and frequent menstruation with regular cycle; F41.9 Anxiety disorder, unspecified; J45.909 Unspecified asthma, uncomplicated; D50.9 Iron deficiency anemia, unspecified; Z86.718 Personal history of other venous thrombosis and embolism; Z95.828 Presence of other vascular implants and grafts; Z88.0 Allergy status to penicillin
CPT/HCPCS: 36415; 80048; 80053; 81001; 81025; 83540; 83550; 83735; 84443; 85007; 85027; 86850; 86900; 86901; 86922; 99291; G0378; J1756